=== PATIENT | female | born 1955 | race Two or more races ===

== ENCOUNTER 2019-02-23 04:56 | Day surgery (SDC) | payer OTHER ==
[2019-02-22 13:55] VITALS: BMI 35.0
--- NOTE | 2019-02-23 09:36 | HP ---
Admitting History and Physical - Admission Chief Complaint: Postmenopausal bleeding History of Present Illness: 63yo Female with postmenopausal bleeding. Seen and evaluated in the office, thickened ES. Insufficient endometrial sampling in the office. Here for diagnostic hysteroscopy and D&C. Still with almost daily bleeding/spotting History Source: Patient Limitations to Obtaining History: Language Barrier - Past Medical History PRICER BAGGER: No: Alzheimer's, CVA, Dementia, Migraine, Multiple Sclerosis, Peripheral Neuropathy, Parkinson's, Seizure, Syncope, TIA, Vertigo, Other Gastrointestinal: No: Ascites, Cancer, Constipation, Crohn's Disease, Diverticulitis, Diverticulosis, Esophageal Varices, Gastritis, GERD, GI Bleed, Hemorrhoids, Hiatal Hernia, Inflamatory Bowel Disease, Irritable Bowel Disease, Pancreatitis, Peptic Ulcer Disease, Ulcerative Colitis, Other ...: No Heme/Onc: No: Anemia, B12 Deficiency, Bleeding Disorder, Cancer, Current Chemotherapy, Current Radiation Therapy, Hemochromatosis, Hypercoaguable State, Myeloproliferative Synd, Sickle Cell Disease, Sickle Cell Trait, Thrombocytopenia, Other Infectious Disease: No: AIDS, C-Diff, Herpes Zoster, HIV, MRSA, STD's, Tuberculosis, VREF, Other Psych: No: Addictions, Anxiety, Bipolar, Depression, Panic, Psychosis, Schizophrenia, Other Musculoskeletal: No: Bursitis, Chronic low back pain, Hemiparesis, Hemiplegia, Osteoarthritis, Paraplegia, Other Rheumatology: No: Fibromyalgia, Gout, Lupus, Rheumatoid Arthritis, Sarcoidosis, Vasculitis, Other ENT: No: Allergic Rhinitis, Sinusitis, Other - Past Surgical History Past Surgical History: Yes: Cholecystectomy - Smoking History Smoking history: Never smoked Have you smoked in the past 12 months: No - Alcohol/Substance Use Hx Alcohol Use: No History of Substance Use: reports: None - Social History Usual Living Arrangement: Yes: With Child ADL: Independent History of Recent Travel: No Home Medications - Allergies Allergies/Adverse Reactions: Allergies Allergy/AdvReac Type Severity Reaction Status Date / Time No Known Allergies Allergy Verified 02/22/19 13:55 - Home Medications Home Medications: Ambulatory Orders NK [No Known Home Medication] 02/22/19 Physical Examination Vital Signs: Vital Signs Temperature 98.0 F 02/23/19 09:21 Pulse Rate 70 02/23/19 09:21 Respiratory Rate 20 02/23/19 09:21 Blood Pressure 139/86 05/17/19 09:21 O2 Sat by Pulse Oximetry (%) 95 02/23/19 09:21 Constitutional: Yes: Well Nourished, No Distress, Calm Eyes: Yes: WNL, Conjunctiva Clear, EOM Intact HENT: Yes: WNL, Atraumatic, Normocephalic Neck: Yes: WNL, Supple, Trachea Midline Cardiovascular: Yes: WNL, Regular Rate and Rhythm Respiratory: Yes: WNL, Regular, CTA Bilaterally Gastrointestinal: Yes: WNL, Normal Bowel Sounds Musculoskeletal: Yes: WNL Extremities: Yes: WNL Edema: No Integumentary: Yes: WNL Neurological: Yes: WNL, Alert, Oriented ...Motor Strength: WNL Psychiatric: Yes: WNL Imaging - Results Ultrasound: Image Reviewed Problem List - Problems (1) Postmenopausal bleeding Code(s): N95.0 - POSTMENOPAUSAL BLEEDING Assessment/Plan 63yo here for diagnostic hysteroscopy, D&C for postmenopausal bleeding- insufficient office sampling NPO, IVFs Risks and benefits to procedure reviewed, including bleeding, infection, uterine perforation. All questions answered in Kiswahili. Consents signed. Elio Mcmahon MD
[2019-02-23] MEDS ORDERED: DEXAMETHASONE SOD PHOSPHATE 4 MG/1 ML VIAL ONE (10:06)
[2019-02-23] MEDS ORDERED: KETOROLAC TROMETHAMINE 30 MG/1 ML VIAL ONE (10:06)
[2019-02-23] MEDS ORDERED: LIDOCAINE HCL/PF 2% SDV 5ML VIAL ONE (10:06)
[2019-02-23] MEDS ORDERED: PROPOFOL 20 ML ONE (10:07)
[2019-02-23] MEDS ORDERED: MIDAZOLAM HCL 2 MG/2 ML SINGLE DOSE VIAL ONE ×2 (10:07)
[2019-02-23] MEDS ORDERED: ONDANSETRON 4 MG/2 ML VIAL IVPUSH PRN (10:54)
[2019-02-23] MEDS ORDERED: PROMETHAZINE HCL 25 MG/1 ML VIAL IVPUSH PRN (10:54)
[2019-02-23] MEDS ORDERED: oxyCODONE HCL 5 MG TABLET PO PRN (10:54)
[2019-02-23] MEDS ORDERED: LACTATED RINGERS SOLUTION 1,000 ML IV SCH (11:00)
[2019-02-23] MEDS ORDERED: ACETAMINOPHEN 325 MG TABLET (FP) ONE (12:06)
[2019-02-23] MEDS ORDERED: ACETAMINOPHEN 325 MG TABLET (FP) PO ONE (13:15)
[2019-02-23 13:35] VITALS: TEMP 97.8
[2019-02-23 13:37] VITALS: BP 96/66; PULSE 62
--- NOTE | 2019-02-23 15:13 | OP ---
Operative Note - Note: Operative Date: 02/23/19 Pre-Operative Diagnosis: Post Menopausal Bleeding Operation: Diagnostic Hysteroscopy, Dilation and Curretage Findings: Normal endometrium without lesions or masses, normal endocervical canal Post-Operative Diagnosis: Same as Pre-op Surgeon: Camilla Mcmahon Anesthesia: MAC Specimens Removed: Endometrial Curettage Estimated Blood Loss (mls): 50 Operative Report Dictated: Yes
--- NOTE | 2019-02-24 08:29 | OP ---
DATE OF OPERATION: 02/23/2019 PREOPERATIVE DIAGNOSIS: Postmenopausal bleeding. POSTOPERATIVE DIAGNOSIS: Postmenopausal bleeding. PROCEDURE: Diagnostic hysteroscopy, dilation and curettage. SURGEON: Trudi Mccray MD ANESTHESIA: IV sedation. ESTIMATED BLOOD LOSS: 50. IV FLUIDS: Per Anesthesia record. URINE OUTPUT: Not measured. SPECIMENS: Endometrial curettage. FINDINGS: Normal endocervical canal, normal endometrial cavity. No masses, no lesions noted. COMPLICATIONS: None. CONDITION: Stable to recovery room. DESCRIPTION OF PROCEDURE: After appropriate consents were signed, patient was taken to the operating room. IV sedation was administered. She was placed in dorsal lithotomy position. A time-out was performed confirming correct patient and procedure. The sterile field was prepped and draped in the normal sterile fashion. Sterile speculum was inserted into the vagina with good visualization of the cervix. The anterior lip of the cervix was grasped with a single-tooth tenaculum. The cervix was then dilated with the Parikh dilators up to 21 to accommodate the diagnostic hysteroscope. The hysteroscope was introduced under fluid distention. The endometrial cavity was distended and noted to be unremarkable aside from fluffy endometrium, but no masses were seen. The hysteroscope was then removed. The endocervical canal was also noted to be normal without any masses. Attention was then paid to curettage, which was done in several passes allowing for sufficient tissue to be sent off for pathology. A gritty texture was noted in the 4 quadrants. The tenaculum was removed. The bite sites were noted to be hemostatic on the anterior lip of the cervix; however, a slow trickle of fluid was noted from the cervix. Pressure was held on the cervix with a sponge stick. Hemostasis was achieved. A dose of IM Methergine was given to allow for sufficient uterine contraction to decrease any future bleeding. Sponge stick was removed. No further bleeding was noted. Patient was taken from the operating room to the recovery area in stable condition. TRUDI MCCRAY MD [id number] MTDD
--- NOTE | 2019-02-28 13:19 | PATH ---
Surgical Pathology Report Patient Name: CANDI DANIELS Med. Rec. #: [id number] /Age/Gender: 1955 (Age: 63) / F Account: [id number] Location: [facility] SURGICAL Taken: 02/23/2019 Received: 02/23/2019 Reported: 02/28/2019 Physicians: Camilla Mcmahon Specimen(s) Received ENDOMETRIAL CURETTINGS Clinical History Postmenopausal bleeding Final Diagnosis ENDOMETRIAL CURETTINGS, DILATION AND CURETTAGE: ENDOMETRIOID CARCINOMA, FIGO 3. SEE COMMENT. Comment: Histologic sections show malignant epithelial cells dispersed as back to back glands and sheets with marked cytologic atypia, associated with areas of necrosis. Immunohistochemical stains performed at [place], [place] ([id number]) and interpreted at [facility] show the tumor is diffusely positive for p16 and ER, while negative for p53, chromogranin and synaptophysin. Findings discussed with Dr. Mcmahon. Electronically Signed Kenya Murguia M.D. Gross Description Received in formalin labeled "endometrial curettings" are multiple fragments of pink-jett hemorrhagic tissue measuring 3 x 2 x 1 cm in aggregate. Entire specimen submitted in one cassette. MLSZ/02/23/2019 sanml/02/23/2019
== END 2019-02-23 13:35 | disposition home or self-care (01) ==
LOC: JASU-SURG 04:56
PROVIDERS: ATTEND Obstetrics & Gynecology
PROC: 0UDB7ZX Extraction of Endometrium, Via Natural or Artificial Opening, Diagnostic (ICD-10-PCS; principal; 2019-02-23 10:00)
PROC: 0UJD8ZZ Inspection of Uterus and Cervix, Via Natural or Artificial Opening Endoscopic (ICD-10-PCS; 2019-02-23 10:00)
DX: N95.0 Postmenopausal bleeding (principal)
CPT/HCPCS: 86850; 86900; 86901; 88305-TC; 94760

== ENCOUNTER → 2022-12-30 | Day surgery (SDC) | payer OTHER | END | disposition home or self-care (01) | LOC: FMAMMOTONE 12:17 | PROVIDERS: ATTEND Physician Assistant | PROC: 0HBU3ZX Excision of Left Breast, Percutaneous Approach, Diagnostic (ICD-10-PCS; principal; 2022-12-30) | DX: D05.12 Intraductal carcinoma in situ of left breast (principal); N64.1 Fat necrosis of breast; N64.89 Other specified disorders of breast; R92.0 Mammographic microcalcification found on diagnostic imaging of breast | CPT/HCPCS: 19081; 76098-TC-FY; 87899; 88305-TC; 88342-TC; A4648 ==

== ENCOUNTER 2023-02-08 13:36 | Emergency (ER) | payer OTHER ==
[2023-02-08] MEDS ORDERED: ONDANSETRON 4 MG/2 ML VIAL IVPB ONE (13:49)
[2023-02-08] MEDS ORDERED: fentaNYL CITRATE 250 MCG/5 ML VIAL IVPUSH ONE (13:49)
[2023-02-08] MEDS ORDERED: SODIUM CHLORIDE 250 ML IV STA (13:50)
[2023-02-08 14:25] VITALS: TEMP 97.7
[2023-02-08] MEDS ORDERED: ONDANSETRON 4 MG/2 ML VIAL ONE (15:05)
[2023-02-08] MEDS ORDERED: fentaNYL CITRATE 250 MCG/5 ML VIAL ONE (15:05)
[2023-02-08 15:16] LABS: VENOUS BASE EXCESS 1.6 mmol/L (-2-2); VENOUS O2 SATURATION 66.1 % (70-80); VENOUS PCO2 45.3 mmHg (38-52); VENOUS PH 7.391 (7.310-7.410)
[2023-02-08 15:26] LABS: HEMATOCRIT 30.5 % (32.4-45.2); HEMOGLOBIN 9.9 GM/dL (10.7-15.3); MCH 27.9 pg (25.7-33.7); MCHC 32.4 g/dl (32.0-36.0); MEAN CELL VOLUME 86.1 fl (80-96); MEAN PLT VOLUME 8.6 fl (7.5-11.1); PLATELET COUNT 146 10^3/uL (134-434); RBC 3.54 M/mm3 (3.60-5.2); RDW 21.3 % (11.6-15.6); WHITE BLOOD COUNT 7.9 K/mm3 (4.0-10.0)
[2023-02-08 15:33] LABS: INR 1.43 (0.83-1.09); PROTHROMBIN TIME (PATIENT) 16.5 SEC (9.7-13.0)
[2023-02-08 15:36] LABS: ACTIVATED PTT 26.9 SECONDS (25.2-36.5); POTASSIUM 4.9 mmol/L (3.5-5.1)
[2023-02-08 15:39] LABS: ALBUMIN 2.7 g/dl (3.4-5.0); BLOOD UREA NITROGEN 80.9 mg/dL (7-18); CALCIUM 10.2 mg/dL (8.5-10.1)
[2023-02-08 15:42] LABS: CREATININE 4.3 mg/dL (0.55-1.3)
[2023-02-08 15:44] LABS: BILIRUBIN,TOTAL 0.6 mg/dL (0.2-1)
[2023-02-08 15:54] LABS: ANISOCYTOSIS 1+; MACROCYTOSIS 0
[2023-02-08] MEDS ORDERED: FENTANYL CITRATE/PF 50 MCG/ML VIAL ONE (18:33)
[2023-02-08] MEDS ORDERED: METOCLOPRAMIDE HCL INJECTION 10 MG/2 ML VIAL IVPB ONE (20:46)
[2023-02-08] MEDS ORDERED: METOCLOPRAMIDE HCL INJECTION 10 MG/2 ML VIAL ONE (20:51)
[2023-02-08 21:29] VITALS: BP 128/96; PULSE 91
[2023-02-08 22:58] VITALS: RESP 20
== END 2023-02-08 23:15 | disposition short-term general hospital (02) ==
LOC: JER 13:36 → UNDOADMIN 20:47 → JERBED 20:47 → JER 23:15
PROC: 3E033GC Introduction of Other Therapeutic Substance into Peripheral Vein, Percutaneous Approach (ICD-10-PCS; principal; 2023-02-08)
PROC: 3E033GC Introduction of Other Therapeutic Substance into Peripheral Vein, Percutaneous Approach (ICD-10-PCS; 2023-02-08)
PROC: 3E033GC Introduction of Other Therapeutic Substance into Peripheral Vein, Percutaneous Approach (ICD-10-PCS; 2023-02-08)
PROC: 3E033GC Introduction of Other Therapeutic Substance into Peripheral Vein, Percutaneous Approach (ICD-10-PCS; 2023-02-08)
PROC: 3E0337Z Introduction of Electrolytic and Water Balance Substance into Peripheral Vein, Percutaneous Approach (ICD-10-PCS; 2023-02-08)
DX: N17.9 Acute kidney failure, unspecified (principal); R18.0 Malignant ascites; R10.84 Generalized abdominal pain; R11.2 Nausea with vomiting, unspecified; Z20.822 Contact with and (suspected) exposure to COVID-19
CPT/HCPCS: 36415; 71045-TC-FY; 74176-TC; 80053; 82803; 83605; 83690; 84484; 85025; 85610; 85730; 86850; 86900; 86901; 93005; 93010; 99285-25; C9803-CS; U0003; U0005